=== PATIENT | male | born 1985 | race Caucasian/White ===

== ENCOUNTER 2016-09-25 05:01 | Emergency (ER) | payer OTHER ==
[~2016-09-25] VITALS: Ht 172.7 cm; Wt 81.6 kg
[2016-09-25 05:09] VITALS: BP 140/89
--- NOTE | 2016-09-25 05:16 | ED GENERAL ADULT ---
History of Present Illness General Chief Complaint: General Adult Stated Complaint: "CP RADIATES TO SHOULDERS AND ABD PAIN" Source: patient, family Exam Limitations: no limitations Vital Signs & Intake/Output Vital Signs & Intake/Output Vital Signs Date Time Temp Pulse Resp B/P B/P Pulse O2 O2 Flow FiO2 Mean Ox Delivery Rate 09/25 0509 98.7 90 18 140/89 98 Room Air Allergies Coded Allergies: Sulfa (Sulfonamide Antibiotics) (Mild, RASH 09/25/16) Reconcile Medications Diphenoxylate HCl/Atropine (Lomotil 2.5-0.025 MG Tablet) 2.5 MG-0.025 MG TABLET 1 TAB PO 4 TIMES/DAY PRN DIARRHEA TWENTY...[id number] Ibuprofen 800 MG TABLET 1 TAB PO TID PRN PAIN Triage Note: PT FROM HOME C/O CP. PT STATES THAT AROUND 1900 LAST NIGHT PT HAD SPICY PIZZA AND STATES NUMEROUS EPISODES OF DIARRHEA AND CP ON LEFT CHEST WALL THAT DOES NOT RADIATE ANYWHERE, PT DENIES ANY JAW PAIN/BACK PAIN/ BILATERAL ARM NUMBNESS OR TINGLING. DR ROBINS AT BEDSIDE, VSS, EKG COMPLETED. Triage Nurses Notes Reviewed? yes Onset: Abrupt Duration: hour(s):, waxing and waning Timing: recent history Injury Environment: home Severity: moderate Modifying Factors: Improves With: rest. Associated Symptoms: LEFT-SIDED CHEST WALL PAIN, DIARRHEA THAT BEGAN YESTERDAY HPI: 31-year-old gentleman history of drug abuse and has been clean since moving from [place] to live with his mother one month ago, presents with diarrhea mild nausea and left-sided chest wall pain that began yesterday afternoon after eating spicy food. He states that he has had several episodes of watery diarrhea, the most recent was 45 minutes ago. He has not vomited. He notes left-sided chest wall discomfort that is worse when he presses upon his chest. The chest pain is nonradiating. He notes that, "I've been working out at the gym quite a lot... it feels like I pulled a muscle." He has no diaphoresis or syncopal symptoms or shortness of breath. He is otherwise well. Past History Travel History Traveled to [place] past 21 day No Medical History Any Pertinent Medical History? see below for history Psychiatric: anxiety Surgical History Surgical History: none Psychosocial History What is your primary language Upper Sorbian Tobacco Use: Never used ETOH Use: occasional use Illicit Drug Use: denies illicit drug use Family History Hx Contributory? No Review of Systems Review of Systems Constitutional: Reports: no symptoms. EENTM: Reports: no symptoms. Respiratory: Reports: no symptoms. Cardiovascular: Reports: no symptoms. GI: Reports: no symptoms. Genitourinary: Reports: no symptoms. Musculoskeletal: Reports: no symptoms. Skin: Reports: no symptoms. Neurological/Psychological: Reports: no symptoms. Hematologic/Endocrine: Reports: no symptoms. Immunologic/Allergic: Reports: no symptoms. All Other Systems: Reviewed and Negative Physical Exam Physical Exam General Appearance: well developed/nourished, alert, awake, anxious, mild distress Head: atraumatic, normal appearance Eyes: Bilateral: normal appearance. Ears, Nose, Throat: normal pharynx Neck: normal inspection, supple, full range of motion Respiratory: normal breath sounds, no respiratory distress, quiet respiration, lungs clear, LEFT-SIDED PARASTERNAL CHEST WALL TENDERNESS TO PALPATION Cardiovascular: regular rate/rhythm Gastrointestinal: normal bowel sounds, soft, non-tender, no organomegaly Back: normal inspection, normal range of motion Extremities: normal inspection, normal capillary refill, normal range of motion, no edema Neurologic/Psych: no motor/sensory deficits, awake, alert, oriented x 3 Skin: intact, normal color, warm/dry Core Measures ACS in differential dx? No CVA/TIA Diagnosis: No Severe Sepsis Present: No Septic Shock Present: No Progress Differential Diagnoses I considered the following diagnoses in my evaluation of the patient: Costochondritis versus DE versus PE Gastroenteritis of viral origin versus food poisoning versus other. Plan of Care: Orders Procedure Date/time Status TROPONIN LEVEL 09/25 516 Complete D-DIMER 09/25 516 Complete COMPREHENSIVE METABOLIC PANEL 09/25 516 Complete CBC WITHOUT DIFFERENTIAL 09/25 516 Complete EKG 09/26 515 Active Laboratory Tests 09/25/16 0537: Anion Gap 9, Estimated GFR > 60, BUN/Creatinine Ratio 18.6, Glucose 106 H, Calcium 9.3, Total Bilirubin 0.8, AST 35, ALT 86 H, Alkaline Phosphatase 62, Troponin I < 0.01, Total Protein 7.1, Albumin 4.3, Globulin 2.8, Albumin/ Globulin Ratio 1.5, D-Dimer < 200, CBC w Diff NO MAN DIFF REQ, RBC 5.09, MCV 87.4, MCH 29.0, RDW 14.1, MPV 6.4 L, Gran % 78.8 H, Lymphocytes % 11.2 L, Monocytes % 8.7, Eosinophils % 1.0, Basophils % 0.3, Absolute Granulocytes 9.3 H, Absolute Lymphocytes 1.3, Absolute Monocytes 1.0 H, Absolute Eosinophils 0.1 , Absolute Basophils 0, PUBS MCHC 33.2 Diagnostic Imaging: Viewed by Me: Radiology Read. Discussed w/RAD: Radiology Read. CXR Impression: no acute abnormality, no infiltrates, normal size heart, normal mediastinum Initial ED EKG: normal axis, normal intervals, normal p-waves, normal QRS complex, normal sinus rhythm Comments: PATIENT: ALBERTO FIGUEROA PRESENT AGE: 31 PATIENT ACCOUNT NO: [id number] : 87 LOCATION: [facility] ORDERING PHYSICIAN: JESSICA ROBINS MD SERVICE DATE: 09/25/16 EXAM TYPE: RAD - XRY-PORTABLE CHEST XRAY EXAMINATION: XR PORTABLE CHEST CLINICAL INFORMATION: Left-sided chest pain COMPARISON: None TECHNIQUE: Portable frontal view of the chest was obtained. FINDINGS: The lungs are well expanded. There is no focal consolidation, edema, or effusion. No pneumothorax. The cardiomediastinal silhouette is within normal limits. No acute osseous abnormality. IMPRESSION: No acute pulmonary findings. DICTATED BY: CURT SUAZO MD DATE/TIME DICTATED:09/25/16606 APPRENTICE JOCKEY:GALLITO DATE/TIME TRANSCRIBED:09/25/16606 CONFIDENTIAL, DO NOT COPY WITHOUT APPROPRIATE AUTHORIZATION. <Electronically signed in Other Vendor System> SIGNED BY: CURT SUAZO MD 09/25 Departure Departure Disposition: HOME OR SELF CARE Condition: Stable Clinical Impression Primary Impression: Diarrhea Secondary Impressions: Chest wall pain Departure Forms: Customer Survey General Discharge Information Prescriptions: Current Visit Scripts Ibuprofen 1 TAB PO TID PRN PAIN #30 TAB Diphenoxylate HCl/Atropine (Lomotil 2.5-0.025 MG Tablet) 1 TAB PO 4 TIMES/DAY PRN DIARRHEA #20 TAB TWENTY...[id number] Comments 09/25/16, 6:45am... pt feeling well after toradol and lomotil... labs/cxr/ekg benign. pt safe for discharge. Critical Care Note Critical Care Note Critical Care Time: non-applicable
[2016-09-25 05:52] LABS: ABSOLUTE BASOPHIL COUNT 0 /CUMM (0.0-0.2); ABSOLUTE EOSINOPHIL COUNT 0.1 /CUMM (0.0-0.7); ABSOLUTE GRANULOCYTE CT 9.3 /CUMM (1.4-6.5); ABSOLUTE LYMPH COUNT 1.3 /CUMM (1.2-3.4); BASOPHIL % 0.3 % (0.0-2.0); GRANULOCYTE % 78.8 % (42.2-75.2); HEMATOCRIT 44.5 % (42-52); MEAN CORPUSCULAR HGB CONC 33.2 G/DL (33.0-37.0); MEAN CORPUSCULAR VOLUME 87.4 FL (80.0-94.0); MEAN PLATELET VOLUME 6.4 FL (7.4-10.4); PLATELET COUNT 256 /CUMM (130-400); RBC DISTRIBUTION WIDTH 14.1 % (11.5-14.5); RED BLOOD CELL CT 5.09 /CUMM (4.70-6.10); WHITE BLOOD CELL COUNT 11.7 /CUMM (4.8-10.8)
--- NOTE | 2016-09-25 06:11 | RADIOLOGY REPORT ---
EXAMINATION: XR PORTABLE CHEST CLINICAL INFORMATION: Left-sided chest pain COMPARISON: None TECHNIQUE: Portable frontal view of the chest was obtained. FINDINGS: The lungs are well expanded. There is no focal consolidation, edema, or effusion. No pneumothorax. The cardiomediastinal silhouette is within normal limits. No acute osseous abnormality. IMPRESSION: No acute pulmonary findings.
[2016-09-25] MEDS ORDERED: IBUPROFEN800 M1 PO (06:27)
[2016-09-25] MEDS ORDERED: LOMOTIL 2.5-0.1 EACH PO (06:27)
== END 2016-09-25 06:51 ==
LOC: ERH 05:01
PROVIDERS: Pediatrics
DX: R07.89 Other chest pain (principal); R19.7 Diarrhea, unspecified
CPT/HCPCS: 93005; 93010; 96372; J1885